=== PATIENT | female | born 1965 | race Hispanic/Latino ===

== ENCOUNTER 2021-09-10 06:06 | Observation (INO) | payer OTHER ==
[2021-09-09 11:51] LABS: BASOPHILS % (AUTO) 0.7 % (0.0-5.0); EOSINOPHILS % (AUTO) 0.9 % (0.0-8.0); HEMATOCRIT 43.4 % (36-48); LYMPHOCYTES % (AUTO) 28.1 % (21.0-51.0); MEAN CORPUSCULAR HEMOGLOBIN 29.5 pg (27.0-33.0); MEAN CORPUSCULAR HGB CONC 32.5 g/dL (32.0-36.0); MEAN CORPUSCULAR VOLUME 90.8 fL (79-99); MONOCYTES % (AUTO) 5.3 % (3.0-13.0); NEUTROPHILS % (AUTO) 64.7 % (40.0-77.0); PLATELET COUNT (AUTO) 330 K/uL (130-400); RED BLOOD CELL COUNT(AUTO) 4.78 MIL/uL (4.00-5.50); RED CELL DISTRIBUTION WIDTH 13.3 % (11.0-15.5); WHITE BLOOD COUNT (AUTO) 7.4 K/uL (4.8-10.8)
[2021-09-09 12:48] VITALS: BP 123/80
[~2021-09-10] VITALS: Ht 160 cm; Wt 89.4 kg
[2021-09-10] VITALS (24 sets, daily range): BP systolic 126–171; BP diastolic 66–92
[~2021-09-10 06:06] MED LIST: CEFAZOLIN SODIUM 2 GM VIAL IV SCH
[2021-09-10] MEDS ORDERED: LACTATED RINGERS 1000ML 1,000 ML IV ONE (06:12)
[2021-09-10] MEDS ORDERED: CEFAZOLIN SODIUM 1 GM VIAL ONE (06:12)
[2021-09-10] MEDS ORDERED: LIDOCAINE PF 100MG/5ML (2%) SYRINGE 5ML ONE (08:29)
[2021-09-10] MEDS ORDERED: MIDAZOLAM HCL 1 MG/ML 2ML VIAL ONE (08:29)
[2021-09-10] MEDS ORDERED: PROPOFOL 10 MG/ML 20ML VIAL IV ONE (08:29)
[2021-09-10] MEDS ORDERED: ROCURONIUM 10MG/1ML SYR 10 MG/ML ML ONE (08:30)
[2021-09-10] MEDS ORDERED: FENTANYL CITRATE PF 50 MCG/1 ML 2ML VIAL ONE ×2 (08:30→12:10)
[2021-09-10] MEDS ORDERED: ONDANSETRON 4MG INJ ONE (10:15)
[2021-09-10] MEDS ORDERED: GLYCOPYRROLATE 1 MG/5 ML SYRINGE ONE (10:53)
[2021-09-10] MEDS ORDERED: NEOSTIGMINE 5MG/5ML SYR IV ONE (10:53)
[2021-09-10] MEDS ORDERED: HYDROMORPHONE 1 MG INJ ONE (12:45)
[2021-09-10] MEDS ORDERED: ONDANSETRON 4MG INJ IVP PRN (15:30)
[2021-09-10] MEDS ORDERED: PROMETHAZINE HCL 25 MG/ML 1ML AMPULE IM PRN ×2 (15:30)
[2021-09-10] MEDS ORDERED: IBUPROFEN 600 MG TABLET PO PRN (15:30)
[2021-09-10] MEDS ORDERED: ACETAMINOPHEN WITH CODEINE 1 TAB TAB PO PRN (15:30)
[2021-09-10] MEDS ORDERED: MEPERIDINE-PF 75 MG/ML SYG IM PRN (15:30)
[2021-09-10] MEDS ORDERED: BISACODYL 10 MG SUPP.RECT RC PRN (15:30)
[2021-09-10] MEDS: DEXTROSE 5 %-0.45 % NACL 1,000 ML IV SCH ×2 (16:12→23:46)
[2021-09-10] MEDS: DOCUSATE SODIUM 100 MG CAP PO PRN (21:43)
[2021-09-10] MEDS: SIMETHICONE 80 MG TAB.CHEW PO PRN (21:43)
[2021-09-11 00:05] VITALS: BP 149/79
[2021-09-11 02:33] VITALS: BP 146/78
[2021-09-11 06:42] LABS: HEMATOCRIT 37.5 % (36-48); MEAN CORPUSCULAR HGB CONC 31.7 g/dL (32.0-36.0); MEAN CORPUSCULAR VOLUME 91.2 fL (79-99); RED BLOOD CELL COUNT(AUTO) 4.11 MIL/uL (4.00-5.50); RED CELL DISTRIBUTION WIDTH 13.4 % (11.0-15.5)
[2021-09-11 07:32] VITALS: BP 149/76
[2021-09-11] MEDS: SIMETHICONE 80 MG TAB.CHEW PO PRN (09:08)
[2021-09-11] MEDS: DOCUSATE SODIUM 100 MG CAP PO PRN (09:08)
[2021-09-11 11:23] VITALS: BP 139/94
[2021-09-11 16:04] VITALS: BP 148/86
== END 2021-09-11 17:20 | disposition home or self-care (01) ==
LOC: DAH 06:06 → WSH 06:07 → UNDOADMOB 06:07 → WSH 14:00
PROVIDERS: ADMIT Obstetrics & Gynecology; ATTEND Obstetrics & Gynecology
DX: D25.9 Leiomyoma of uterus, unspecified (principal); Z20.822 Contact with and (suspected) exposure to COVID-19; N81.5 Vaginal enterocele; N99.4 Postprocedural pelvic peritoneal adhesions; E66.9 Obesity, unspecified; Z90.710 Acquired absence of both cervix and uterus; Z79.899 Other long term (current) drug therapy
CPT/HCPCS: 36415 ×2; 57268; 58554; 85025; 85027; 86850; 86900; 86901; 87635; 96372; 96374; A4215 ×2; A4221; A4222; A4223; A4344; A4351; A4600; A4649 ×3; A4663; C1769 ×2; C9803; G0378 ×23; J0690; J1170; J2001; J2175; J2250; J2405 ×2; J2550; J2704; J2710; J3010 ×2; J3490; J7030; J7120